=== PATIENT | male | born 1960 | race Caucasian/White ===

== ENCOUNTER 2022-04-13 14:31 | Emergency (ER) | payer OTHER, SELFPAY ==
[2022-04-13 15:13] VITALS: BP 185/81; PULSE 64; RESP 18; TEMP 36.6; O2SAT 97; BMI 34.2
--- NOTE | 2022-04-13 16:15 | CRLHL7_ITS ---
For Patients: As a result of the Century Cures Act, medical imaging exams and procedure reports are released immediately into your electronic medical record. You may view this report before your referring provider. If you have questions, please contact your health care provider. INDICATION: Left-sided abdominal pain. COMPARISON: None. TECHNIQUE: CT abdomen and pelvis with intravenous contrast; coronal and sagittal reformats. FINDINGS: No abnormal intra pulmonary nodular densities through the lung bases. No evidence of pleural effusion. Normal size cardiac silhouette. A 5.9 x 2.2 cm pericardial cyst on the right side of the heart. No focal hepatic or splenic pathology. No pancreatic pathology. Gallbladder is absent. No adrenal pathology. No kidney stones or obstructive uropathy involving the right kidney. A 5 mm obstructing calculus left distal ureter , slice 123 series 2,l at about 4 cm from the ureterovesical junction causing moderate left-sided hydronephrosis and hydroureter. Perinephric stranding surrounding the left kidney. No retroperitoneal lymphadenopathy. No evidence of abdominal or pelvic ascites. Normal appendix. No pneumoperitoneum or intestinal obstruction. Enlarged prostate gland. Diverticulosis sigmoid colon without any CT evidence of diverticulitis or abscess. IMPRESSION: 1. 5 mm obstructing calculus left distal ureter with mild to moderate left-sided hydronephrosis and hydroureter. 2. Enlarged prostate gland. 3. Normal appendix. 4. A 5.9 x 2.2 cm pericardial cyst. Please note that all CT scans at this facility use dose modulation, iterative reconstruction, and/or weight-based dosing when appropriate to reduce radiation dose to as low as reasonably achievable. Dictated by Trevor Miner MD @ 04/13/2022 6:17:39 PM (Electronically Signed)
--- NOTE | 2022-04-13 16:18 | ED.ABDPAIN ---
HPI - Abdominal Pain General Chief Complaint: Abdominal Pain Stated Complaint: Pain in lower right side Time Seen by Provider: 04/13/22 15:49 History of Present Illness HPI narrative: This 61-year-old male comes in reporting intermittent left-sided abdominal pain over the past 4 days. He does not report any fevers, dysuria, or altered bowel function. There is no blood in the toilet. He has had his gallbladder removed it in the past. Related Data Previous Rx's Medication Instructions Recorded ketorolac 10 mg tablet 10 mg PO TID 5 Days #15 tab 04/13/22 tramadol 50 mg tablet 50 mg PO Q6H PRN #20 tab 04/13/22 Allergies Allergy/AdvReac Type Severity Reaction Status Date / Time acetaminophen [From Vicodin] Allergy Verified 04/13/22 15:26 ciprofloxacin [From Cipro] Allergy Verified 04/13/22 15:26 hydrocodone [From Vicodin] Allergy Verified 04/13/22 15:26 metronidazole [From Flagyl] Allergy Verified 04/13/22 15:26 Penicillins Allergy Verified 04/13/22 15:25 piperacillin [From Zosyn] Allergy Verified 04/13/22 15:26 tazobactam [From Zosyn] Allergy Verified 04/13/22 15:26 Review of Systems Status of ROS Reports: 10 or more systems reviewed and unremarkable except as noted in History and below Narrative Constitutional: No fevers, no weight gain or loss. Eyes: No discharge. No vision changes. HENT: No congestion, no sore throat, no ear pain. Cardiovascular: No chest pain, no palpitations. Respiratory: No shortness of breath, no wheezes, no cough. Gastrointestinal: No vomiting, no diarrhea. Left-sided abdominal pain as described above. Genitourinary: No dysuria, no hematuria. Musculoskeletal: Normal range of motion. Skin: No rashes, no pruritis. Neurological: No dizziness, weakness, sensory change, speech change. Endo/Heme/Allergies: No bruising or bleeding. No polydipsia. Pysch: no suicidality, no anxiety, no insomnia. All other systems reviewed and are negative. [facility] Surgical History (Updated 04/13/22 @ 16:39 by Em Marino RN) History of cholecystectomy Social History Smoking Status: Former smoker Do you use any of these nicotine containing products: None How often do you have a drink containing alcohol: never How often do you have six or more drinks on one occasion: Never AUDIT-C Alcohol total score: 0 Non-prescribed substance use: denies use Exam Narrative: Exam Narrative: Constitutional: Well-developed, well-nourished, no acute distress. HEENT: Normocephalic, atraumatic. Neck: Normal range of motion. Nontender. Supple. Heart: Regular. No murmurs. Normal rate. Intact distal pulses. Lungs: Clear to auscultation. No chest discomfort. No wheezes, rhonchi, or rales. Abdomen: Normal bowel sounds. Mild tenderness on the left side. No rebound tenderness. Genitalia: Deferred. Back: No midline tenderness. Normal range of motion. Extremities: Normal range of motion. No injury. Skin: Intact. No rash. Warm. No erythema or pallor. Neurologic: No altered sensation. No weakness. Alert and oriented. Psychiatric: No suicidality. No anxiety or depression. No insomnia. Nursing notes and vitals signs are reviewed. Const: Vital Signs, click to edit/add: Vital Signs - 24 hr 04/13/22 15:13 04/13/22 17:29 Temperature 98 F 98.1 F Pulse Rate [Pulse Oximeter] 64 69 Respiratory Rate 18 18 Blood Pressure [Ri t Upper Arm] 185/81 H 160/76 H Pulse Oximetry 97 96 Course Vital Signs Vital signs: Initial Vital Signs Temperature 98 F 04/13/22 15:13 Temperature Source Temporal Artery Scan 04/13/22 15:13 Pulse Rate 64 04/13/22 15:13 Pulse Rhythm 04/13/22 15:13 Respiratory Rate 18 04/13/22 15:13 Blood Pressure 185/81 H 04/13/22 15:13 Blood Pressure Mean 115 04/13/22 15:13 Blood Pressure Position Sitting 04/13/22 15:13 Pulse Oximetry 97 04/13/22 15:13 Oxygen Delivery Method 04/13/22 15:13 Vital Signs Temperature 98 F 04/13/22 15:13 Pulse Rate 64 04/13/22 15:13 Respiratory Rate 18 04/13/22 15:13 Blood Pressure 185/81 H 04/13/22 15:13 Pulse Oximetry 97 04/13/22 15:13 Temperature 98.1 F 04/13/22 17:29 Pulse Rate 69 04/13/22 17:29 Respiratory Rate 18 04/13/22 17:29 Blood Pressure 160/76 H 04/13/22 17:29 Pulse Oximetry 96 04/13/22 17:29 MDM - Abdominal Pain MDM Narrative Medical decision making narrative: This patient comes in with intermittent left-sided abdominal pain. This pain seems to come and go. He does also reports some brownish colored urine about a couple weeks ago that resolved. He does not have a prior history of kidney stone. CT imaging of the abdomen and pelvis does show evidence of a 5 mm stone in the left ureter. Additionally his white count is significantly elevated at 57. This is not new for him. He is following with an oncologist with regard to this. The patient did receive an IV dose of Toradol which brought great relief to his pain. A prescription for this is provided along with tramadol. He is instructed to return if not improving or worsening symptoms happen. This stone is a bit larger than average but the hope is nevertheless that he will be able to pass it without intervention. Lab Data Labs: Lab Results 04/13/22 04/13/22 Range/Units 16:25 16:25 WBC 57.37 H* (4.50-11.00) K/uL RBC 4.59 (4.30-5.90) m/uL Hgb 14.6 (13.5-17.5) gm/dL Hct 46.4 (37.0-53.0) % MCV 101 H (80-100) fL MCH 32 (26-34) pg MCHC 32 (32-36) gm/dL RDW Coeff of Shanell 12.8 (11.5-15.5) % Plt Count 252 (140-440) K/uL Neut % (Auto) 21.7 L (42.0-72.0) % Lymph % (Auto) 74.6 H (20-44) % [place] % (Auto) 3.3 (0.0-11.0) % Eos % (Auto) 0.1 (0.0-7.0) % Baso % (Auto) 0.1 (0.0-3.0) % Neut # (Auto) 12.40 H (1.7-7.0) K/uL Lymph # (Auto) 42.80 H (0.90-2.90) K/uL [place] # (Auto) 1.90 H (0.00-0.90) K/UL Eos # (Auto) 0.10 (0.00-0.50) K/uL Baso # (Auto) 0.10 (0.00-0.30) K/uL Abs Immat Gran (auto) 0.10 (0.00-0.30) K/uL Sodium 142 (135-149) mmol/L Potassium 4.3 (3.6-5.1) mmol/L Chloride 108 (96-114) mmol/L Carbon Dioxide 24 (20-32) mmol/L BUN 16 (7-30) mg/dL Creatinine 1.2 (0.5-1.5) mg/dL Estimated Creat Clear 68.85 Glucose 119 H (60-115) mg/dL Calcium 9.1 (8.4-10.6) mg/dL Imaging Data CT scan - abdomen: Radiologist's impression: 1. 5 mm obstructing calculus left distal ureter with mild to moderate left-sided hydronephrosis and hydroureter. 2. Enlarged prostate gland. 3. Normal appendix. 4. A 5.9 x 2.2 cm pericardial cyst. Discharge Plan Discharge Clinical Impression: Calculus of kidney Condition: Stable Instructions: Kidney Stones (ED) Prescriptions: New ketorolac 10 mg tablet 10 mg PO TID 5 Days Qty: 15 0RF tramadol 50 mg tablet 50 mg PO Q6H PRN (Reason: pain) Qty: 20 0RF Follow Up/Referrals: To Anthony MD [Primary Care Provider] - Stand Alone Forms: MyHealth Info Instructions
[2022-04-13 16:32] LABS: Hematocrit 46.4 % (37.0-53.0); Hemoglobin* 14.6 gm/dL (13.5-17.5); Mean Corpuscular HGB Conc 32 gm/dL (32-36); Mean Corpuscular Hemoglobin 32 pg (26-34); Mean Corpuscular Volume 101 fL (80-100); Platelet Count* 252 K/uL (140-440); RDW Coefficient of Variation % 12.8 % (11.5-15.5); Red Blood Count 4.59 m/uL (4.30-5.90)
[2022-04-13] MEDS: KETOROLAC 30 MG/ML inj IVP (16:35)
--- NOTE | 2022-04-13 16:45 | ED.NURSE ---
Dr Cabrera updated on critical WBC
[2022-04-13 16:46] LABS: Slide Review Reflex Yes; White Blood Count* 57.37 K/uL (4.50-11.00)
[2022-04-13 16:50] LABS: Chloride* 108 mmol/L (96-114); Potassium* 4.3 mmol/L (3.6-5.1); Sodium* 142 mmol/L (135-149)
[2022-04-13 16:53] LABS: Blood Urea Nitrogen* 16 mg/dL (7-30); Carbon Dioxide* 24 mmol/L (20-32); Creatinine* 1.2 mg/dL (0.5-1.5); Est. Creatinine Clearance* 68.85; Glucose* 119 mg/dL (60-115)
[2022-04-13 16:54] LABS: Calcium* 9.1 mg/dL (8.4-10.6)
[2022-04-13 17:29] VITALS: BP 160/76; PULSE 69; RESP 18; TEMP 36.7; O2SAT 96
[2022-04-13 19:27] LABS: Slide Review Acceptable Review (Acceptable)
== END 2022-04-13 18:55 | disposition home or self-care (01) ==
PROVIDERS: Emergency Provider Emergency Medicine Emergency Medical Services; PCP Family Medicine
DX: N20.0 Calculus of kidney (principal)
CPT/HCPCS: 36415; 74177; 80048; 85025; 96374; 99284; 99285; J1885; Q9967

== ENCOUNTER 2022-11-05 14:00 | Outpatient (RCR) | payer OTHER, SELFPAY ==
[2022-05-14 14:13] LABS: Basophils Percent Auto 0.2 % (0.0-3.0); Eosinophils Percent Auto 0.4 % (0.0-7.0); Hematocrit 43.2 % (37.0-53.0); Hemoglobin* 13.8 gm/dL (13.5-17.5); Immature Granulocytes Abs Auto 0.05 K/uL (0.00-0.30); Immature Reticulocyte Fraction 8.6 % (2.3-13.4); Lymphocytes Percent Auto 89.1 % (20-44); Mean Corpuscular HGB Conc 32 gm/dL (32-36); Mean Corpuscular Hemoglobin 32 pg (26-34); Mean Corpuscular Volume 101 fL (80-100); Monocytes Percent Auto 2.8 % (0.0-11.0); Neutrophils Percent Auto 7.4 % (42.0-72.0); Platelet Count* 235 K/uL (140-440); RDW Coefficient of Variation % 12.8 % (11.5-15.5); Red Blood Count 4.29 m/uL (4.30-5.90); Reticulocyte Hemoglobin Equivi 32.8 pg (29.0-35.0); Reticulocyte Percent 1.1 % (0.5-2.0); Reticulocytes Absolute 0.05 # (0.03-0.08)
[2022-05-14 14:27] LABS: Albumin* 4.5 g/dL (3.3-5.0); Chloride* 106 mmol/L (96-114); Sodium* 141 mmol/L (135-149)
[2022-05-14 14:28] LABS: Potassium* 4.5 mmol/L (3.6-5.1)
[2022-05-14 14:30] LABS: Alanine Aminotransferase* 18 U/L (4-50); Alkaline Phosphatase* 74 U/L (40-150); Aspartate Amino Transferase* 26 U/L (12-35); Bilirubin Total* 0.9 mg/dL (0.1-1.5); Blood Urea Nitrogen* 13 mg/dL (7-30); Carbon Dioxide* 26 mmol/L (20-32); Estimated Glomerular Filt Rate 86 ml/min; Glucose* 93 mg/dL (60-115); Total Protein* 7.5 g/dL (6.0-8.3)
[2022-05-14 14:31] LABS: Calcium* 9.2 mg/dL (8.4-10.6)
[2022-05-14 14:47] LABS: Vitamin D 25 Hydroxy* 94 ng/mL (30-80)
[2022-05-14 14:59] LABS: Slide Review Reflex Yes
[2022-05-14 15:01] LABS: White Blood Count* 51.38 K/uL (4.50-11.00)
[2022-05-15 07:39] LABS: Slide Review Acceptable Review (Acceptable)
[2022-11-05 14:21] LABS: Basophils Percent Auto 0.1 % (0.0-3.0); Eosinophils Percent Auto 0.1 % (0.0-7.0); Hematocrit 45.6 % (37.0-53.0); Hemoglobin* 14.1 gm/dL (13.5-17.5); Immature Granulocytes Pct Auto 0.1 %; Lymphocytes Percent Auto 87.8 % (20-44); Mean Corpuscular HGB Conc 31 gm/dL (32-36); Mean Corpuscular Hemoglobin 32 pg (26-34); Mean Corpuscular Volume 103 fL (80-100); Monocytes Percent Auto 1.3 % (0.0-11.0); Neutrophils Percent Auto 10.6 % (42.0-72.0); Platelet Count* 275 K/uL (140-440); RDW Coefficient of Variation % 12.9 % (11.5-15.5); Red Blood Count 4.41 m/uL (4.30-5.90)
[2022-11-05 14:59] LABS: Slide Review Reflex Yes; White Blood Count* 62.86 K/uL (4.50-11.00)
[2022-11-05 15:01] LABS: Slide Review Acceptable Review (Acceptable)
--- NOTE | 2022-11-06 09:35 | ONC.NURNOTE ---
Patient due for follow up. Provider schedule is tight. Asked FAN BLADE ALIGNER to schedule patient for labs and provider to determine urgency to get patient into clinic visit.
== END 2022-11-10 23:59 | disposition home or self-care (01) ==
LOC: CCIC 14:00
PROVIDERS: PCP Family Medicine; Referring Provider Family Medicine; Visit Provider Internal Medicine Hematology & Oncology
DX: C91.10 Chronic lymphocytic leukemia of B-cell type not having achieved remission (principal)
CPT/HCPCS: 36415; 80053; 82306; 85025; 85045; 99212; 99213

== ENCOUNTER 2023-05-18 15:00 | Outpatient (RCR) | payer OTHER, SELFPAY ==
[2023-05-18 14:29] LABS: Basophils Percent Auto 0.1 % (0.0-3.0); Eosinophils Percent Auto 0.3 % (0.0-7.0); Hematocrit 45.4 % (37.0-53.0); Hemoglobin* 14.1 gm/dL (13.5-17.5); Immature Granulocytes Pct Auto 0.1 %; Lymphocytes Percent Auto 91.8 % (20-44); Mean Corpuscular HGB Conc 31 gm/dL (32-36); Mean Corpuscular Hemoglobin 32 pg (26-34); Mean Corpuscular Volume 101 fL (80-100); Monocytes Percent Auto 1.5 % (0.0-11.0); Neutrophils Percent Auto 6.2 % (42.0-72.0); Platelet Count* 242 K/uL (140-440); Red Blood Count 4.48 m/uL (4.30-5.90)
[2023-05-18 14:54] LABS: Slide Review Reflex Yes; White Blood Count* 69.31 K/uL (4.50-11.00)
[2023-05-18 14:55] LABS: Slide Review Acceptable Review (Acceptable)
[2023-05-18 16:06] LABS: Albumin* 4.6 g/dL (3.3-5.0); Chloride* 105 mmol/L (96-114); Potassium* 3.9 mmol/L (3.6-5.1); Sodium* 139 mmol/L (135-149)
[2023-05-18 16:08] LABS: Bilirubin Total* 1.1 mg/dL (0.1-1.5); Carbon Dioxide* 26 mmol/L (20-32); Creatinine* 1.1 mg/dL (0.5-1.5); Estimated Glomerular Filt Rate 76 ml/min
[2023-05-18 16:09] LABS: Alanine Aminotransferase* 22 U/L (4-50); Alkaline Phosphatase* 81 U/L (40-150); Aspartate Amino Transferase* 35 U/L (12-35); Blood Urea Nitrogen* 16 mg/dL (7-30); Calcium* 9.1 mg/dL (8.4-10.6); Glucose* 86 mg/dL (60-115); Lactate Dehydrogenase* 197 U/L (120-246); Total Protein* 7.8 g/dL (6.0-8.3)
== END 2023-06-22 23:59 | disposition home or self-care (01) ==
LOC: CCIC 15:00
PROVIDERS: Internal Medicine Hematology & Oncology; PCP Family Medicine; Referring Provider Family Medicine; Visit Provider Internal Medicine Hematology & Oncology
DX: C91.10 Chronic lymphocytic leukemia of B-cell type not having achieved remission (principal)
CPT/HCPCS: 36415; 80053; 83615; 85025; 99212; 99213; 99214

== ENCOUNTER 2023-11-08 08:49 | Outpatient (CLI) | payer MEDICAID, SELFPAY | END 2023-11-08 08:50 | disposition home or self-care (01) | PROVIDERS: PCP Family Medicine; Visit Provider Family Medicine | DX: N40.0 Benign prostatic hyperplasia without lower urinary tract symptoms (principal); I10 Essential (primary) hypertension; Z13.220 Encounter for screening for lipoid disorders | CPT/HCPCS: 80048; 80061; 85025; G0103 ==

== ENCOUNTER 2023-11-11 08:27 | Outpatient (CLI) | payer MEDICAID, SELFPAY ==
--- NOTE | 2023-11-11 10:16 | W.ANESCHARGE ---
Anesthesia Charges Start Date/Time Anesthesia Start Date: 11/11/23 Anesthesia Start Time: 09:28 Stop Date/Time Anesthesia Stop Date: 11/11/23 Anesthesia Stop Time: 10:14
== END 2023-11-11 08:28 | disposition home or self-care (01) ==
LOC: OP CLINIC 08:27
PROVIDERS: PCP Family Medicine; Visit Provider Surgery
DX: Z12.11 Encounter for screening for malignant neoplasm of colon (principal); K63.5 Polyp of colon; Z86.010 Personal history of colon polyps
CPT/HCPCS: 00811; 45385; 88305; J2704

== ENCOUNTER 2024-02-21 10:00 | Outpatient (RCR) | payer MEDICAID, SELFPAY ==
[2023-11-22 14:14] LABS: Basophils Percent Auto 0.1 % (0.0-3.0); Eosinophils Percent Auto 0.2 % (0.0-7.0); Hematocrit 46.1 % (37.0-53.0); Hemoglobin* 14.3 gm/dL (13.5-17.5); Immature Granulocytes Pct Auto 0.1 %; Lymphocytes Percent Auto 92.4 % (20-44); Mean Corpuscular HGB Conc 31 gm/dL (32-36); Mean Corpuscular Hemoglobin 32 pg (26-34); Mean Corpuscular Volume 102 fL (80-100); Monocytes Percent Auto 1.1 % (0.0-11.0); Neutrophils Percent Auto 6.1 % (42.0-72.0); Platelet Count* 248 K/uL (140-440); RDW Coefficient of Variation % 12.8 % (11.5-15.5); Red Blood Count 4.51 m/uL (4.30-5.90)
[2023-11-22 14:41] LABS: Albumin* 4.9 g/dL (3.3-5.0); Chloride* 103 mmol/L (96-114)
[2023-11-22 14:42] LABS: Potassium* 3.8 mmol/L (3.6-5.1); Sodium* 138 mmol/L (135-149)
[2023-11-22 14:43] LABS: Slide Review Reflex Yes
[2023-11-22 14:44] LABS: Alkaline Phosphatase* 81 U/L (40-150); Anion Gap 12 mEq/L (7-15); Aspartate Amino Transferase* 26 U/L (12-35); Bilirubin Total* 1.2 mg/dL (0.1-1.5); Blood Urea Nitrogen* 18 mg/dL (7-30); Carbon Dioxide* 23 mmol/L (20-32); Creatinine* 1.1 mg/dL (0.5-1.5); Estimated Glomerular Filt Rate 75 ml/min; Glucose* 99 mg/dL (60-115); Slide Review Acceptable Review (Acceptable); Total Protein* 8.1 g/dL (6.0-8.3)
[2023-11-22 14:45] LABS: Alanine Aminotransferase* 26 U/L (4-50); Calcium* 9.4 mg/dL (8.4-10.6); Lactate Dehydrogenase* 169 U/L (120-246)
[2024-02-21 10:29] LABS: Basophils Percent Auto 0.1 % (0.0-3.0); Eosinophils Percent Auto 0.3 % (0.0-7.0); Hematocrit 44.4 % (37.0-53.0); Hemoglobin* 13.7 gm/dL (13.5-17.5); Immature Granulocytes Pct Auto 0.1 %; Lymphocytes Percent Auto 93.9 % (20-44); Mean Corpuscular HGB Conc 31 gm/dL (32-36); Mean Corpuscular Hemoglobin 32 pg (26-34); Mean Corpuscular Volume 103 fL (80-100); Monocytes Percent Auto 1.8 % (0.0-11.0); Neutrophils Percent Auto 3.8 % (42.0-72.0); Platelet Count* 235 K/uL (140-440); RDW Coefficient of Variation % 13.1 % (11.5-15.5)
[2024-02-21 11:20] LABS: Slide Review Reflex Yes; White Blood Count* 93.57 K/uL (4.50-11.00)
[2024-02-21 11:31] LABS: Slide Review Acceptable Review (Acceptable)
== END 2024-05-20 23:59 | disposition home or self-care (01) ==
LOC: CCIC 10:00
PROVIDERS: PCP Family Medicine; Referring Provider Family Medicine; Visit Provider Internal Medicine Hematology & Oncology
DX: C91.10 Chronic lymphocytic leukemia of B-cell type not having achieved remission (principal)
CPT/HCPCS: 36415; 80053; 83615; 85025; 99213; 99214; G0463

== ENCOUNTER 2024-08-24 12:42 | Outpatient (CLI) | payer MEDICAID, SELFPAY ==
--- NOTE | 2024-08-24 13:30 | PE_ITS ---
[facility] [address] [facility] [address] Phone:?[phone] Fax:?[phone] Referring Physician Information: Mague Lew M.D. [address] [facility] [address] Phone:?[phone] Fax:?[phone] Patient:Sherwin Chin D.O.B:?1960 Sex:?Male Phone:?[phone] [facility] MRN:?[id number] Exam Date:?08/24/2024 EXAM: PET EYES TO THIGHS, CANCER INITIAL STAGING CLINICAL INFORMATION: CLL, restaging. TECHNICAL INFORMATION: Helical acquisition of data was obtained from the orbits to the upper thighs with reconstruction of 3.75 mm thick images at 3.[address] data was used for attenuation correction. PET scanning was performed through the same anatomic range 53 minutes following administration of 13.48 mCi of 18-FDG delivered intravenously. The patient's glucose at the time of the injection was 107 mg/dL. PET, CT and PET/CT fusion images are interpreted using a computer viewing workstation. PET, CT and PET/CT fusion images were archived and saved in the patient's permanent medical record. COMPARISON: Abdominopelvic CT from 04/13/2022. INTERPRETATION: Head and Neck: Focal left mandibular hypermetabolism (SUVmax = 15.76) likely reflects benign periodontal disease. Linear FDG uptake in the right oropharynx (lateral to the base of tongue) has a maximum SUV of 19.82, indeterminate but with an appearance that would be highly atypical for neoplastic etiology. This may be inflammatory related to recent infection or instrumentation. There are no other abnormal hypermetabolic foci within the head or neck. There is physiologic uptake in the intracranial soft tissues. Multiple prominent lymph nodes are scattered throughout the neck, none of which are hypermetabolic. For instance, a left submandibular node (Se 2 Im 46) measures 1.6 x 1.2 cm with a maximum SUV of 2.7. Chest: There are no abnormal hypermetabolic foci within the chest. Background mediastinal blood pool uptake has a maximum SUV of 3.03. No lung nodules or masses detected on this free-breathing exam. No lymphadenopathy detected. Benign pericardial cyst noted incidentally. Abdomen and Pelvis: There are no abnormal hypermetabolic foci within the abdomen or pelvis. Background hepatic parenchymal uptake has a maximum SUV of 3.76. There is physiologic excretion of radiotracer in the urine and bowel. Skeleton, Musculature, and Integument: No abnormal hypermetabolic foci within the skeleton. No eusebia osteoblastic or osteolytic disease. CONCLUSION: 1. No hypermetabolic lymphadenopathy to indicate biologically aggressive malignancy. 2. Slightly prominent lymph nodes are scattered throughout the neck, none of which are hypermetabolic. 3. Probable benign periodontal uptake in left mandible. 4. Indeterminate linear hypermetabolism in the right oropharynx, potentially inflammatory or postprocedural. Recommend clinical evaluation for signs of oral/dental disease. Electronically signed on 08/25/2024 2:21:00 PM by Buck Angulo M.D.
== END 2024-08-24 12:43 | disposition home or self-care (01) ==
LOC: RAD 12:43
PROVIDERS: PCP Family Medicine; Visit Provider Internal Medicine Hematology & Oncology
DX: C91.10 Chronic lymphocytic leukemia of B-cell type not having achieved remission (principal); R59.0 Localized enlarged lymph nodes
CPT/HCPCS: 78815; A9552

== ENCOUNTER 2024-08-28 13:30 | Outpatient (RCR) | payer MEDICAID, SELFPAY ==
[2024-05-29 13:33] LABS: Basophils Percent Auto 0.1 % (0.0-3.0); Eosinophils Percent Auto 0.7 % (0.0-7.0); Hematocrit 43.1 % (37.0-53.0); Hemoglobin* 13.5 gm/dL (13.5-17.5); Immature Granulocytes Pct Auto 0.1 %; Lymphocytes Percent Auto 92.1 % (20-44); Mean Corpuscular HGB Conc 31 gm/dL (32-36); Mean Corpuscular Hemoglobin 32 pg (26-34); Mean Corpuscular Volume 102 fL (80-100); Monocytes Percent Auto 1.9 % (0.0-11.0); Neutrophils Percent Auto 5.1 % (42.0-72.0); Platelet Count* 226 K/uL (140-440); RDW Coefficient of Variation % 13.3 % (11.5-15.5); Red Blood Count 4.23 m/uL (4.30-5.90)
[2024-05-29 13:50] LABS: Albumin* 4.7 g/dL (3.3-5.0); Chloride* 107 mmol/L (96-114); Sodium* 139 mmol/L (135-149)
[2024-05-29 13:52] LABS: Estimated Glomerular Filt Rate 85 ml/min
[2024-05-29 13:53] LABS: Alkaline Phosphatase* 69 U/L (40-150); Anion Gap 8 mEq/L (7-15); Aspartate Amino Transferase* 30 U/L (12-35); Blood Urea Nitrogen* 29 mg/dL (7-30); Calcium* 9.2 mg/dL (8.4-10.6); Carbon Dioxide* 24 mmol/L (20-32); Glucose* 91 mg/dL (60-115); Lactate Dehydrogenase* 163 U/L (120-246); Total Protein* 7.6 g/dL (6.0-8.3)
[2024-05-29 14:02] LABS: Slide Review Reflex Yes; White Blood Count* 101.15 K/uL (4.50-11.00)
[2024-05-29 14:16] LABS: Alanine Aminotransferase* 19 U/L (4-50)
[2024-05-29 15:04] LABS: Slide Review Acceptable Review (Acceptable)
[2024-08-24 10:49] LABS: Basophils Percent Auto 0.1 % (0.0-3.0); Eosinophils Percent Auto 0.2 % (0.0-7.0); Hematocrit 46.3 % (37.0-53.0); Hemoglobin* 14.5 gm/dL (13.5-17.5); Immature Granulocytes Pct Auto 0.1 %; Lymphocytes Percent Auto 93.1 % (20-44); Mean Corpuscular HGB Conc 31 gm/dL (32-36); Mean Corpuscular Hemoglobin 32 pg (26-34); Mean Corpuscular Volume 103 fL (80-100); Neutrophils Percent Auto 4.5 % (42.0-72.0); Platelet Count* 257 K/uL (140-440); RDW Coefficient of Variation % 13.1 % (11.5-15.5); Red Blood Count 4.48 m/uL (4.30-5.90)
[2024-08-24 11:00] LABS: Albumin* 4.7 g/dL (3.3-5.0); Chloride* 104 mmol/L (96-114)
[2024-08-24 11:01] LABS: Potassium* 4.1 mmol/L (3.6-5.1); Sodium* 135 mmol/L (135-149)
[2024-08-24 11:03] LABS: Anion Gap 7 mEq/L (7-15); Bilirubin Total* 0.7 mg/dL (0.1-1.5); Carbon Dioxide* 24 mmol/L (20-32); Est. Creatinine Clearance* 78.07; Estimated Glomerular Filt Rate 85 ml/min; Total Protein* 7.8 g/dL (6.0-8.3)
[2024-08-24 11:04] LABS: Alanine Aminotransferase* 25 U/L (4-50); Alkaline Phosphatase* 84 U/L (40-150); Aspartate Amino Transferase* 26 U/L (12-35); Blood Urea Nitrogen* 25 mg/dL (7-30); Calcium* 9.4 mg/dL (8.4-10.6); Glucose* 105 mg/dL (60-115); Lactate Dehydrogenase* 150 U/L (120-246)
[2024-08-24 11:59] LABS: Slide Review Reflex Yes; White Blood Count* 103.69 K/uL (4.50-11.00)
[2024-08-24 12:54] LABS: Slide Review Acceptable Review (Acceptable)
== END 2024-11-25 23:59 | disposition home or self-care (01) ==
LOC: CCIC 13:30
PROVIDERS: PCP Family Medicine; Referring Provider Family Medicine; Visit Provider Internal Medicine Hematology & Oncology
DX: C91.10 Chronic lymphocytic leukemia of B-cell type not having achieved remission (principal)
CPT/HCPCS: 36415; 80053; 83615; 85025; 99213; 99214; G0463

== ENCOUNTER 2024-12-02 17:12 | Emergency (ER) | payer MEDICAID, SELFPAY ==
--- OUTSIDE RECORDS SUMMARY | 2024-12-02 17:15 | XMS_ITS | Continuity of Care Document ---
Author Organization [facility] Address [address] [facility] [address] [place] [address] Assessment Encounter Date Assessment Date Assessment LastModified by Organization Details LastModified Time 10/31/2024 10/31/2024 ASSESSMENT: Patient is a good candidate for conservative care and the prognosis is for a favorable outcome that achieves the patients' goals. We discussed etiology, activity modifications, home care, and other treatment options. Initially, it is recommended that the patient receive in-office treatment 1 times per week for 8 weeks at which time a re-evaluation will be performed to determine an appropriate change in plan. Initially, treatment will focus on joint manipulation to restore range of motion and reduce pain. We will slowly progress to therapeutic exercises and activities to improve function, strength, and stability may also be used as warranted. If the patient is not responding as expected, more invasive procedures will be discussed along with a referral. All considerations above were discussed with the patient and questions answered to satisfaction. If the patient should have any additional questions, or should the condition evolve or worsen, the patient should not hesitate to contact our office. [email or web address] Not available 11/01/2024 10:33:43 Plan of Treatment Reminders Order Date Submit Date Provider Last Modified By Organization Details Last Modified Time Details Appointments None record ed. Lab None record ed. Referral None record ed. Procedures None record ed. Surgeries None record ed. Imaging None record ed. Medication Orders None record ed. Patient TargetsNo targets recorded. Patient InstructionsNo instructions recorded. Reason for Referral None Reported. Problems Name Problem SNOMED Code Status Onset Date Resolution Date Notes Provider Name and Address Organization Details Recorded Time Thoracic segmental dysfunction 241178008 Active 2024 Pancho Avitia [place] [address], [facility] [place], [address] , [facility] 10:33:45 Low back pain 324457214 Active 2024 Pancho Avitia [place] [address], [place], [address], [facility] 10:33:45 Somatic dysfunction of sacral spine 575856505 Active 2024 Pancho Avitia [place] [address], [place], [address], [facility] 10:33:45 Lumbar segmental dysfunction 460193249 Active 2024 Pancho Avitia [place] [address], [place], [address], [facility] 10:33:45 Problem Notes None recorded. Procedures Surgical History Date Name Laterality Status Provider Name and Address Organization Details Recorded Time 80780: Spinal manipulation , 3 to 4 regions completed Pancho Avitia [place] [address], [place], [address], [facility] 11/01/2024 10:34:45 Imaging Results None recorded. Procedure Notes None recorded. Medical Equipment None Reported. Vitals None Recorded Social History None recorded. Functional Status None recorded. Mental Status None recorded. Family History Nothing Reported. Medical History No medical history recorded. Past Encounters Encounter ID Performer Location Encounter Start Date Encounter Closed Date Diagnosis/Indication Diagnosis SNOMED-CT Code Diagnosis ICD10 Code Diagnosis Note [id number] Pancho Avitia [facility] [address] [place] [address] [place] [address] 10/31/2024 12:33:24 11/01/2024 11:35:25 Lumbar segmental dysfunction 714718915 M99.03 Low back pain 317688407 M54.50 Somatic dy sfunction of sacral spine 875390942 M99.04 Thoracic s egmental dysfunction 802824595 M99.02 Health Concerns Section Related Observation LastModified by Organization Detai ls LastModified Time None Recorded Concern Status LastModified by Organization Details LastModified Time None Recorded Payers Encounter Date Sequence Insurance Name Policy Number Policy Olvera Covered Member ID Olvera Member ID Guarantor Name 10/31/2024 1 SAKSHI (O) [id number] Delonte Nguyen [id number] Delonte Nguyen Notes Date Note Type Note Provider Name and Address Organization Details Recorded Time 10/31/2024 text/html HPI - Lumbar SpineReported bypatient.Location: bilateral Quality:aching Severity:not changing Timing:morning Aggravating Factors:standing Alleviating Factors:ice Scot Ronald Avitia [place] [address], [place], [address], [facility] 11/01/2024 10:35:05
--- OUTSIDE RECORDS SUMMARY | 2024-12-02 17:15 | XMS_ITS | Data Portability ---
Author Organization [facility] - [facility] Address [address] [place] [address] Assessment Encounter Date Assessment Date Assessment LastModified [...] Organization Details Recorded Time Thoracic segmental dysfunction 308387883 Active 2024 Pancho Avitia [place] [address], [place], [address], [facility] 10:33:45 Low back pain 398943259 Active 2024 Pancho Avitia [place] [address], [place], [address], [facility] 10:33:45 Somatic dysfunction of sacral spine 253061751 Active 2024 Pancho Avitia [place] [address], [place], [address], [facility] 10:33:45 Lumbar segmental dysfunction 696170113 Active 2024 Pancho Avitia [place] [address], [place], [address], [facility] 10:33:45 Problem Notes None recorded. Procedures Surgical History Date Name Laterality Status Provider Name and Address Organization Details Recorded Time 55700: Spinal manipulation , 3 to 4 regions completed Pancho Avitia [place] [address], [place], [address], [facility] 11/01/2024 10:34:45 Imaging Results None recorded. Procedure Notes None recorded. Medical Equipment None Reported. Vitals None Recorded Social History None recorded. Functional Status None recorded. Mental Status None recorded. Family History Nothing Reported. Medical History No medical history recorded. Past Encounters Encounter ID Performer Location Encounter Start Date Encounter Closed Date Diagnosis/Indication Diagnosis SNOMED-CT Code Diagnosis ICD10 Code Diagnosis Note [id number] aPncho Avitia [facility] [address] [place] [address] [place] [address] 10/31/2024 12:33:24 11/01/2024 11:35:25 Lumbar segmental dysfunction 784151063 M99.03 Low back pain 566285872 M54.50 Somatic dy sfunction of sacral spine 516104808 M99.04 Thoracic s egmental dysfunction 144213414 M99.02 Health Concerns Section Related Observation LastModified by Organization Detai ls LastModified Time None Recorded Concern Status LastModified by Organization Details LastModified Time None Recorded Advance Directives Directive None Recorded Payers Encounter Date Sequence Insurance Name Policy Number Policy Olvera Covered Member ID Olvera Member ID Guarantor Name 10/31/2024 1 SAKSHI (PPO) [id number] Delonte Nguyen [id number] Delonte Nguyen Notes Date Note Type Note Provider Name and Address Organization Details Recorded Time 10/31/2024 text/html HPI - Lumbar SpineReported bypatient.Location: bilateral Quality:aching Severity:not changing Timing:morning Aggravating Factors:standing Alleviating Factors:ice Pancho Avitia [place] [address] [facility], [place], [address], [facility] 11/01/2024 10:35:05
[2024-12-02 17:16] VITALS: BP 150/79; PULSE 75; RESP 16; TEMP 37.3; O2SAT 93; BMI 32.8
--- NOTE | 2024-12-02 17:52 | ED.WOUNDLAC ---
HPI - Wound/Laceration General Chief Complaint: Laceration/Wound Stated Complaint: Right pinkie laceration Time Seen by Provider: 12/02/24 17:19 History of Present Illness HPI narrative: This 64-year-old male comes in with an injury to his right little finger. He was using a sapphire stylus grinder and accidentally got his finger in the way of the sapphire stylus grinder. He has a small avulsion of skin over the dorsal at aspect of the distal component of his right little finger. His tetanus was last administered 10 years ago. He is not on any anticoagulants. Related Data Home Medications ?Medication ?Instructions ?Recorded ?Confirmed cholecalciferol (vitamin D3) 125 125 mcg PO QDAY 05/14/22 08/28/24 mcg (5,000 unit) tablet (Vitamin D3) multivitamin 1 tab PO QAM 05/14/22 08/28/24 ferrous sulfate 324 mg (65 mg 324 mg PO 2XW 11/05/23 08/28/24 iron) tablet,delayed release flaxseed oil 1,000 mg capsule 1,000 mg PO QDAY 11/05/23 08/28/24 iodine 150 mcg tablet 150 tab PO .As Needed PRN 11/05/23 08/28/24 magnesium L-threonate 48 mg 48 mg PO QDAY 11/05/23 08/28/24 magnesium (667 mg) capsule magnesium glycinate 200 mg PO QDAY 11/05/23 08/28/24 omega-3 fatty acids 1,000 mg 1,000 mg PO QDAY 11/05/23 08/28/24 capsule saw palmetto 160 mg capsule 320 mg PO QDAY 11/05/23 08/28/24 ashwaganda 470 mg PO PRN 05/29/24 08/28/24 ascorbic acid (vitamin C) 1,000 mg 1 g PO .Twice Weekly PRN 08/28/24 08/28/24 tablet Previous Rx's ?Medication ?Instructions ?Recorded lisinopril 10 1 tab PO QDAY #30 tabs 10/02/24 mg-hydrochlorothiazide 12.5 mg tablet Allergies Allergy/AdvReac Type Severity Reaction Status Date / Time Penicillins Allergy Intermediate Hives Verified 08/28/24 13:21 piperacillin (From Zosyn) Allergy Intermediate rash Verified 08/28/24 13:21 ciprofloxacin (From Cipro) Allergy Mild Rash Verified 08/28/24 13:21 metronidazole (From Flagyl) Allergy Rash Verified 08/28/24 13:21 tazobactam (From Zosyn) Allergy rash Verified 08/28/24 13:21 acetaminophen (From Vicodin) AdvReac Intermediate Did not Verified 08/28/24 13:21 work hydrocodone (From Vicodin) AdvReac Did not Verified 08/28/24 13:21 work Review of Systems Status of ROS: Reports: 10 or more systems reviewed and unremarkable except as noted in History and below Narrative: Constitutional: No fevers, no weight gain or loss. Eyes: No discharge. No vision changes. HENT: No congestion, no sore throat, no ear pain. Cardiovascular: No chest pain, no palpitations. Respiratory: No shortness of breath, no wheezes, no cough. Gastrointestinal: No abdominal pain, no vomiting, no diarrhea. Genitourinary: No dysuria, no hematuria. Musculoskeletal: Normal range of motion. Skin: No rashes, no pruritis. Neurological: No dizziness, weakness, sensory change, speech change. Endo/Heme/Allergies: No bruising or bleeding. No polydipsia. Pysch: no suicidality, no anxiety, no insomnia. All other systems reviewed and are negative. [facility] Medical History (Updated 12/02/24 @ 17:55 by Cristopher Cabrera MD) Primary hypertension ?I10 - Essential (primary) hypertension (ICD-10) Enlarged prostate (04/13/22) ?N40.0 - Benign prostatic hyperplasia without lower urinary tract symptoms (ICD-10) History of renal stone (04/13/22) ?Z87.442 - Personal history of urinary calculi (ICD-10) History of colon polyps ?Z86.010 - Personal history of colonic polyps (ICD-10) Health care directive on file (08/17/21) ?Z78.9 - Other specified health status (ICD-10) LORRAINE on CPAP ?G47.33 - Obstructive sleep apnea (adult) (pediatric) (ICD-10) Iron deficiency anemia ?D50.9 - Iron deficiency anemia, unspecified (ICD-10) Surgical History (Updated 11/04/23 @ 10:20 by Vinita Bacon) History of left inguinal hernia repair (08/07/19) ?Z98.890 - Other specified postprocedural states (ICD-10) ?Z87.19 - Personal history of other diseases of the digestive system (ICD-10) History of incisional hernia repair (11/08/14) ?Z98.890 - Other specified postprocedural states (ICD-10) ?Z87.19 - Personal history of other diseases of the digestive system (ICD-10) History of cholecystectomy (2011) ?Z90.49 - Acquired absence of other specified parts of digestive tract (ICD-10) Social History Smoking Status: Never smoker Do you use any of these nicotine containing products: None How often do you have a drink containing alcohol: never How often do you have six or more drinks on one occasion: Never AUDIT-C Alcohol total score: 0 Non-prescribed substance use: denies use Exam Narrative: Exam Narrative: Constitutional: Well-developed, well-nourished, no acute distress. HEENT: Normocephalic, atraumatic. Neck: Normal range of motion. Nontender. Supple. Heart: Regular. No murmurs. Normal rate. Intact distal pulses. Lungs: Clear to auscultation. No chest discomfort. No wheezes, rhonchi, or rales. Abdomen: Normal bowel sounds. Nontender. No rebound tenderness. Genitalia: Deferred. Back: No midline tenderness. Normal range of motion. Extremities: Normal range of motion. Right little finger has an avulsion injury on the dorsal aspect. This occupies an area of less than 1 cm in diameter. Skin: Intact. No rash. Warm. No erythema or pallor. Neurologic: No altered sensation. No weakness. Alert and oriented. Psychiatric: No suicidality. No anxiety or depression. No insomnia. Nursing notes and vitals signs are reviewed. Const: Vital Signs, click to edit/add: Vital Signs - 24 hr 12/02/24 17:16 Temperature 99.1 F Pulse Rate [Pulse Oximeter] 75 Respiratory Rate 16 Blood Pressure [Le ft Upper Arm] 150/79 H Pulse Oximetry 93 Oxygen Delivery Me thod Room Air Course Vital Signs Vital signs: Initial Vital Signs Temperature 99.1 F 12/02/24 17:16 Temperature Source Temporal Artery Scan 12/02/24 17:16 Pulse Rate 75 12/02/24 17:16 Respiratory Rate 16 12/02/24 17:16 Blood Pressure 150/79 H 12/02/24 17:16 Blood Pressure Mean 102 12/02/24 17:16 Blood Pressure Position Sitting 12/02/24 17:16 Pulse Oximetry 93 12/02/24 17:16 Oxygen Delivery Method Room Air 12/02/24 17:16 Vital Signs Temperature 99.1 F 12/02/24 17:16 Pulse Rate 75 12/02/24 17:16 Respiratory Rate 16 12/02/24 17:16 Blood Pressure 150/79 H 12/02/24 17:16 Pulse Oximetry 93 12/02/24 17:16 Oxygen Delivery Method Room Air 12/02/24 17:16 Temperature 99.1 F 12/02/24 17:16 Pulse Rate 75 12/02/24 17:16 Respiratory Rate 16 12/02/24 17:16 Blood Pressure 150/79 H 12/02/24 17:16 Pulse Oximetry 93 12/02/24 17:16 Oxygen Delivery Method Room Air 12/02/24 17:16 MDM - Wound/Laceration MDM Narrative Medical decision making narrative: This patient has a small skin avulsion from a sapphire stylus grinder. This skin edges are not easily approximated but should heal nicely with secondary intention. There is a small amount of ongoing bleeding so I did use a ring exsanguinater to stop the blood flow. I did cleanse the wound and then applied Dermabond followed by and a bandage. Instructions regarding wound care were given. The patient did receive a tetanus vaccination here. Discharge Plan Discharge Clinical Impression: Laceration Patient Disposition: Home, Self-Care Condition: Improved Additional Instructions: Keep wound clean and dry. Follow up with MD as needed or return if worsening. Prescriptions: No Action ashwaganda 470 mg PO PRN multivitamin Tablet 1 tab PO QAM cholecalciferol (vitamin D3) [Vitamin D3] 125 mcg (5,000 unit) tablet 125 mcg PO QDAY iodine 150 mcg tablet 150 tab PO .As Needed PRN Rx Instructions: On occassion saw palmetto 160 mg capsule 320 mg PO QDAY Rx Instructions: give with food (meal/snack) omega-3 fatty acids 1,000 mg capsule 1,000 mg PO QDAY magnesium L-threonate 48 mg magnesium (667 mg) capsule 48 mg PO QDAY magnesium glycinate 100 mg magnesium capsule 200 mg PO QDAY flaxseed oil 1,000 mg capsule 1,000 mg PO QDAY Rx Instructions: administer with a meal ferrous sulfate 324 mg (65 mg iron) tablet,delayed release (DR/EC) 324 mg PO 2XW ascorbic acid (vitamin C) 1,000 mg tablet 1 g PO .Twice Weekly PRN lisinopril-hydrochlorothiazide 10-12.5 mg tablet 1 tab PO QDAY Qty: 30 1RF Follow Up/Referrals: To Anthony MD [Primary Care Provider] - Stand Alone Forms: [employer] Info Instructions
[2024-12-02] MEDS: TETANUS/DIPHTH/PERTUSSIS 0.5 ML SYRINGE IM (18:14)
[2024-12-02 18:22] VITALS: BP 150/79; PULSE 75; RESP 16; TEMP 37.3
--- OUTSIDE RECORDS SUMMARY | 2024-12-02 18:25 | XMS_ITS | Clinical Summary ---
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 0 10/05/2014 Active multivitamin (MVI) tablet Take 1 tablet by mouth once daily. 0 10/05/2014 Active [place]-3 Fatty Acids (FISH OIL) 300 mg capsule Take 1 capsule by mouth once daily. 0 10/05/2014 Active Flaxseed Oil (LINSEED OIL) oil As directed once daily. 1 Bottle 0 10/29/2014 Active CPAP autoCPAP, heated humidifier, mask, headgear, filters and tubing. Pressure: 4-15cm/H2O Length of Need: 99 1 Device 0 11/01/2014 Active cholecalciferol (VITAMIN D) 1,000 unit capsule Take 1 capsule by mouth once daily. 0 01/18/2015 Active pyridoxine (VITAMIN B-6) 100 mg tablet Take 1 tablet by mouth once daily. 0 01/18/2015 Active Active Problems Problem Noted Date Diagnosed Date Adenomatous colon polyp 02/05/2015 Overview (07/17/2015): Colonoscopy 02/2015 multiple adenomatous colon polyps repeat in 6 months with an APC machine Colonoscopy 07/2015 polyp repeat in 3 years LORRAINE 06/30/2006 AHI- 33 11/01/2014 Immunizations Name Administration Dates Next Due Td (Age >=7 Years) 06/09/2006 Tdap 01/18/2015 Zoster (Zostavax-ZVL, live) 07/30/2015 Social History Tobacco Use Types Packs/Day Years Used Date Smoking Tobacco: Never Smokeless Tobacco: Never Tobacco Cessation:Counseling Given: Yes Alcohol Use Standard Drinks/Week Comments No 0 (1 standard drink = 0.6 oz pur e alcohol) Sex and Gender Information Value Date Recorded Sex Assigned at Not on file Legal Sex Male 2:33 PM BREAD IC[employer] Gender Identity Not on file Sexual Orientation Not on file Obstetrics History Last Filed Vital Signs Vital Sign Reading Time Taken Comments Blood Pressure 136/81 07/29/2015 8:56 AM CDT Pulse 78 07/29/2015 8:56 AM CDT Temperature 37.3 C (99.1 F) 07/29/2015 8:56 AM CDT Respiratory Rate - - Oxygen Saturation 95% 07/29/2015 8:56 AM CDT Inhaled Oxygen Concentration - - Weight 117.9 kg (260 lb) 07/29/2015 8:56 AM CDT Height 180.3 cm (5' 11) 07/29/2015 8:56 AM CDT Body Mass Index 36.26 07/29/2015 8:56 AM CDT Plan of Treatment Health Maintenance Due Date Last Done Comments Depression screening for age 12+ 1972 HIV for age 15-65 1975 BMI (ht and wt on same day) for age 18+ 1978 Hepatitis C screening for age 18-79 1978 Pneumococcal series for age 50+ (1 of 1 - PCV) 2010 Zoster (shingles) series for age 50+ (2 of 3) 09/24/2015 07/30/2015 Colonoscopy through age 75 07/15/201807/15, 07/15/2015, 02/01/2015 Lipids for age 45-75 01/19/2020 01/18/2015 COVID-19 vaccine series ( - 2023- season) 2024 Influenza for age 50-64 06/04/2024 Tetanus booster 01/18/2025 01/18/2015, 06/09/2006 RSV vaccine for adults or pr egnancy (1 - 1-dose 75+ series) 2035 Tdap Completed 01/18/2015, 10/05 (Completed outside of [facility]) Procedures Procedure Name Priority Date/Time Associated Diagnosis Comments SCAN-COLONOSCOPY 07/15/2015 12:0 0 AM CDT LIPID PANEL W REFLEX MEASURED LDL Routine 01/18/2015 10:00 AM CDT Screening cholesterol level from Last 3 Months or Most Recently Relevant to Health Maintenance Results * SCAN-COLONOSCOPY (07/15/2015 12:00 AM CDT) us Scanner OTHER Final Result * (ABNORMAL) LIPID PANEL W REFLEX MEASURED LDL (01/18/2015 10:00 AM CDT) CHOLESTEROL,TOTAL 150 100 - 199 mg/dL 01/18/2015 10:27 AM CDT [facility] TRIGLYCERIDES 92 <150 mg/dL 01/18/2015 10:27 AM CDT [facility] HDL CHOLESTEROL 32(L) >40 mg/dL 5 10:27 AM CDT [facility] NON-HDL CHOLESTEROL 118 <145 mg/dl 01/18/2015 10:27 AM CDT [facility] CHOL/HDL RATIO 4.69(H) <4.50 01/18/2015 10:27 AM CDT [facility] LDL CHOLESTEROL 100 <=130 mg/dL 01/18/2015 10:27 AM CDT [facility] PATIENT STATUS FASTING 01/18/2015 10:27 AM CDT [facility] Blood specimen (specimen) BLOOD SPECIMEN / Unknown Venipuncture / Unknown 01/18/2015 10:00 AM CDT 01/18/2015 10:00 AM CDT us Peewee Borges MD CHEMISTRY Final Resu lt [facility] [address] [place] [address], [place] [phone] from Last 3 Months or Most Recently Relevant to Health Maintenance Insurance [facility] Advance Directives Documents on File Type Date Recorded 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
== END 2024-12-02 18:26 | disposition home or self-care (01) ==
LOC: ED 18:23
PROVIDERS: Emergency Provider Emergency Medicine Emergency Medical Services; PCP Family Medicine
DX: S61.216A Laceration without foreign body of right little finger without damage to nail, initial encounter (principal); W29.8XXA Contact with other powered hand tools and household machinery, initial encounter; Z23 Encounter for immunization
CPT/HCPCS: 12001; 90471; 90715; 99283; 99284

== ENCOUNTER 2025-03-19 08:56 | Outpatient (CLI) | payer MEDICAID, SELFPAY | END 2025-03-19 08:57 | disposition home or self-care (01) | PROVIDERS: PCP Family Medicine; Visit Provider Family Medicine | DX: Z00.00 Encounter for general adult medical examination without abnormal findings (principal); I10 Essential (primary) hypertension; Z12.5 Encounter for screening for malignant neoplasm of prostate; Z13.6 Encounter for screening for cardiovascular disorders | CPT/HCPCS: 80061; G0103 ==

== ENCOUNTER 2025-05-23 13:30 | Outpatient (RCR) | payer MEDICAID, SELFPAY ==
[2024-11-30 14:29] LABS: Albumin* 4.9 g/dL (3.3-5.0); Chloride* 102 mmol/L (96-114); Sodium* 137 mmol/L (135-149)
[2024-11-30 14:30] LABS: Potassium* 4.0 mmol/L (3.6-5.1)
[2024-11-30 14:32] LABS: Alanine Aminotransferase* 25 U/L (4-50); Alkaline Phosphatase* 70 U/L (40-150); Anion Gap 9 mEq/L (7-15); Aspartate Amino Transferase* 27 U/L (12-35); Bilirubin Total* 1.2 mg/dL (0.1-1.5); Blood Urea Nitrogen* 16 mg/dL (7-30); Calcium* 9.1 mg/dL (8.4-10.6); Carbon Dioxide* 26 mmol/L (20-32); Creatinine* 1.2 mg/dL (0.5-1.5); Estimated Glomerular Filt Rate 68 ml/min; Glucose* 91 mg/dL (60-115); Total Protein* 7.5 g/dL (6.0-8.3)
[2024-11-30 14:40] LABS: Hematocrit 44.7 % (37.0-53.0); Hemoglobin* 13.9 gm/dL (13.5-17.5); Immature Granulocytes Pct Auto 0.1 %; Mean Corpuscular HGB Conc 31 gm/dL (32-36); Mean Corpuscular Hemoglobin 32 pg (26-34); Mean Corpuscular Volume 104 fL (80-100); RDW Coefficient of Variation % 12.9 % (11.5-15.5); Red Blood Count 4.31 m/uL (4.30-5.90)
[2024-11-30 15:37] LABS: Immature Granulocytes Abs Auto 0.10 K/uL (0.00-0.30); Lymphocytes Absolute Auto 99.70 K/uL (0.90-2.90); Slide Review Reflex Yes; White Blood Count* 107.78 K/uL (4.50-11.00)
[2024-11-30 16:13] LABS: Slide Review Acceptable Review (Acceptable)
[2025-02-21 12:38] LABS: Hematocrit 44.3 % (37.0-53.0); Hemoglobin* 13.7 gm/dL (13.5-17.5); Immature Granulocytes Abs Auto 0.10 K/uL (0.00-0.30); Immature Granulocytes Pct Auto 0.1 %; Mean Corpuscular HGB Conc 31 gm/dL (32-36); Mean Corpuscular Hemoglobin 32 pg (26-34); Mean Corpuscular Volume 104 fL (80-100); RDW Coefficient of Variation % 12.8 % (11.5-15.5); Red Blood Count 4.26 m/uL (4.30-5.90)
[2025-02-21 12:50] LABS: Albumin* 4.6 g/dL (3.3-5.0); Chloride* 104 mmol/L (96-114); Sodium* 139 mmol/L (135-149)
[2025-02-21 12:51] LABS: Potassium* 4.1 mmol/L (3.6-5.1)
[2025-02-21 12:53] LABS: Alanine Aminotransferase* 27 U/L (4-50); Alkaline Phosphatase* 68 U/L (40-150); Anion Gap 8 mEq/L (7-15); Aspartate Amino Transferase* 34 U/L (12-35); Bilirubin Total* 1.3 mg/dL (0.1-1.5); Blood Urea Nitrogen* 22 mg/dL (7-30); Carbon Dioxide* 27 mmol/L (20-32); Creatinine* 1.3 mg/dL (0.5-1.5); Estimated Glomerular Filt Rate 61 ml/min; Total Protein* 7.4 g/dL (6.0-8.3)
[2025-02-21 12:54] LABS: Calcium* 9.3 mg/dL (8.4-10.6); Glucose* 96 mg/dL (60-115)
[2025-02-21 13:01] LABS: Lymphocytes Absolute Auto 110.10 K/uL (0.90-2.90); Slide Review Reflex Yes; White Blood Count* 117.47 K/uL (4.50-11.00)
[2025-02-21 13:02] LABS: Slide Review Acceptable Review (Acceptable)
[2025-05-23 13:29] LABS: Hematocrit 43.5 % (37.0-53.0); Hemoglobin* 13.5 gm/dL (13.5-17.5); Immature Granulocytes Pct Auto 0.1 %; Mean Corpuscular HGB Conc 31 gm/dL (32-36); Mean Corpuscular Hemoglobin 32 pg (26-34); Mean Corpuscular Volume 102 fL (80-100); RDW Coefficient of Variation % 13.0 % (11.5-15.5); Red Blood Count 4.25 m/uL (4.30-5.90)
[2025-05-23 13:36] LABS: Immature Granulocytes Abs Auto 0.10 K/uL (0.00-0.30); Lymphocytes Absolute Auto 107.20 K/uL (0.90-2.90); Slide Review Reflex Yes; White Blood Count* 114.61 K/uL (4.50-11.00)
[2025-05-23 13:49] LABS: Albumin* 4.6 g/dL (3.3-5.0); Chloride* 105 mmol/L (96-114); Potassium* 4.4 mmol/L (3.6-5.1); Sodium* 137 mmol/L (135-149)
[2025-05-23 13:51] LABS: Alanine Aminotransferase* 28 U/L (4-50); Anion Gap 6 mEq/L (7-15); Aspartate Amino Transferase* 36 U/L (12-35); Blood Urea Nitrogen* 21 mg/dL (7-30); Carbon Dioxide* 26 mmol/L (20-32); Creatinine* 1.2 mg/dL (0.5-1.5); Est. Creatinine Clearance* 64.21; Estimated Glomerular Filt Rate 68 ml/min
[2025-05-23 13:52] LABS: Alkaline Phosphatase* 61 U/L (40-150); Bilirubin Total* 0.9 mg/dL (0.1-1.5); Calcium* 9.6 mg/dL (8.4-10.6); Glucose* 97 mg/dL (60-115); Total Protein* 7.4 g/dL (6.0-8.3)
[2025-05-23 14:56] LABS: Slide Review Acceptable Review (Acceptable)
== END 2025-05-29 23:59 | disposition home or self-care (01) ==
LOC: CCIC 13:30
PROVIDERS: PCP Family Medicine; Referring Provider Family Medicine; Visit Provider Internal Medicine Hematology & Oncology
DX: C91.10 Chronic lymphocytic leukemia of B-cell type not having achieved remission (principal)
CPT/HCPCS: 36415; 80053; 83615; 85025; 99213; 99214; G0463

== ENCOUNTER 2025-08-14 13:22 | Outpatient (BNVA) | payer MEDICAID, SELFPAY | END 2025-08-14 15:10 | disposition home or self-care (01) | PROVIDERS: PCP Family Medicine; Referring Provider Family Medicine; Visit Provider Internal Medicine Hematology & Oncology | DX: C91.10 Chronic lymphocytic leukemia of B-cell type not having achieved remission (principal) | CPT/HCPCS: 80053; 83615; 85025 ==